=== PATIENT | male | born 1945 | race Caucasian/White ===

== ENCOUNTER 2020-10-12 08:37 | Outpatient (CLI) | payer MEDICARE ==
[2020-10-12] MEDS ORDERED: TRIAMCINOLONE ACETONIDE 40 MG/ML, 1ML ONE (09:32)
[2020-10-12] MEDS ORDERED: BUPIVACAINE/PF 0.5% ONE (09:32)
[2020-10-12] MEDS ORDERED: LIDOCAINE 1%, 10ML ONE (09:33)
== END 2020-10-12 23:59 | disposition home or self-care (01) ==
LOC: RAD 08:37
PROVIDERS: ATTEND Orthopaedic Surgery
DX: M25.572 Pain in left ankle and joints of left foot (principal)
CPT/HCPCS: 20605; 77002; J3301